=== PATIENT | male | born 2000 | race Two or more races ===

== ENCOUNTER 2022-05-03 15:27 | Outpatient (CLI) | payer OTHER | END 2022-05-03 15:36 | disposition home or self-care (01) | LOC: SONOGRAMA 15:27 | PROVIDERS: ATTEND Obstetrics & Gynecology | DX: N50.82 Scrotal pain (principal) ==

== ENCOUNTER 2022-10-18 00:55 | Emergency (ER) | payer OTHER ==
[~2022-10-18] VITALS: Ht 188 cm; Wt 83.9 kg
[2022-10-18] MEDS ORDERED: DOLOGESIC 500-1 EACH PO (06:10)
== END 2022-10-18 06:22 ==
LOC: ER 00:55
DX: G43.909 Migraine, unspecified, not intractable, without status migrainosus (principal); R53.81 Other malaise

== ENCOUNTER 2025-08-18 16:08 | Outpatient (CLI) | payer OTHER ==
[~2025-08-18 16:08] MED LIST: DOLOGESIC 500-1 EACH PO
== END 2025-08-18 16:16 | disposition home or self-care (01) ==
LOC: TOM 16:08
DX: I67.9 Cerebrovascular disease, unspecified (principal)

== ENCOUNTER → 2025-08-24 09:37 | Outpatient (CLI) | payer OTHER ==
[2025-08-24 10:31] LABS: BASO % 0.7 % (0.1-1.2); EOS # 0.11 (0.04-0.54); EOS % 2.6 % (0.7-7.0); LYMPH # 1.13 (1.18-3.74); LYMPH % 26.8 % (19.3-53.1); MEAN PLATELET VOLUME 10.90 fl (9.4-12.4); MONO # 0.49 (0.24-0.82); MONO % 11.6 % (4.7-12.5); NEUT # 2.44 (1.56-6.13); NEUT % 58.1 % (34.0-71.1); RED CELL DISTRIBUTION WIDTH 12.6 % (11.6-14.4)
[2025-08-24 10:45] LABS: URINE APPEARANCE Clear; URINE BILIRRUBIN Negative (NEGATIVE); URINE BLOOD Negative; URINE COLOR Yellow; URINE GLUCOSE Negative (NEGATIVE); URINE KETONE Negative (NEGATIVE); URINE LEUKOCYTE Negative; URINE NITRATE Negative; URINE PROTEIN Negative (NEGATIVE); URINE UROBILINOGEN 0.2 E.U./dl
[2025-08-24 10:52] LABS: URINE BACTERIA 10.7 uL (0.0-1933); URINE CAST 0.14 uL (0.0-1.40); URINE EPITHELIAL CELLS 3.5 uL (0.0-38.8); URINE RBC 0.2 uL (0.0-20.8); URINE WBC 6.1 uL (0.0-23.2)
[2025-08-24 11:37] LABS: ALT/SGPT 38.0 U/L (12-78); AST/SGOT 22.0 U/L (15-37); BILIRUBIN TOTAL 1.98 mg/dL (0.3-1.2); BUN CREA RATIO 16.0 (7.0-25.0); CHOL HDL RATIO 2.5 (0-5.0); CREATININE SERUM 1.17 mg/dL (0.70-1.30); GFR 74.78; GLOBULINA 3.2 G/DL (2.4-3.5); GLUCOSE FASTING 93.0 mg/dL (65-100); HDL 61.0 mg/dl (40-60); LDL 78.0 mg/dl (0-130); OSMOLALITY SERUM 283.0 MOSM/KG (275-295); T4 TOTAL 6.74 UG/DL (4.5-12.1); TSH 1.01 uIU/mL (0.358-3.74); VLDL 12.0 (0-39)
[2025-08-24 13:06] LABS: T3 TOTAL 1.13 ng/ml (0.846-2.02); VITAMIN D3 25 HYDROXY 22.44 ng/ml (30-120)
== END | disposition home or self-care (01) ==
LOC: LAB 09:37
DX: M32.9 Systemic lupus erythematosus, unspecified (principal); D50.8 Other iron deficiency anemias; N39.0 Urinary tract infection, site not specified; E11.40 Type 2 diabetes mellitus with diabetic neuropathy, unspecified; E78.00 Pure hypercholesterolemia, unspecified; Z12.11 Encounter for screening for malignant neoplasm of colon; E03.8 Other specified hypothyroidism; E55.9 Vitamin D deficiency, unspecified; N28.9 Disorder of kidney and ureter, unspecified; N40.0 Benign prostatic hyperplasia without lower urinary tract symptoms